=== PATIENT | female | born 1990 | race Hispanic/Latino ===

== ENCOUNTER 2016-05-07 00:01 | Emergency (ER) | payer OTHER ==
[~2016-05-07] VITALS: Ht 162.6 cm; Wt 68.0 kg
[2016-05-07 00:25] VITALS: BP 106/60
--- NOTE | 2016-05-07 00:29 | ED ANKLE/FOOT INJURY COMPLAINT ---
History of Present Illness General Chief Complaint: Foot or Ankle Injury Stated Complaint: HIT TOE ON RT FOOT PER PT "IT HURTS" Source: patient Exam Limitations: no limitations Vital Signs & Intake/Output Vital Signs & Intake/Output Vital Signs Date Time Temp Pulse Resp B/P Pulse O2 O2 Flow FiO2 Ox Delivery Rate 05/07 0031 94 Room Air 05/07 0025 97.5 79 18 106/60 94 Room Air Allergies Coded Allergies: celery (Severe, HIVES 05/07/16) peanut (Severe, ANAPHYLAXIS 05/07/16) Reconcile Medications Oxycodone HCl/Acetaminophen (Percocet 5-325 MG Tablet) 5 MG-325 MG TABLET 1-2 TAB PO Q6P PRN PAIN Triage Nurses Notes Reviewed? yes : No Patient currently breastfeeds: No HPI: This patient is a 26-year-old female who presented to the emergency department today for evaluation of right fourth toe pain. The patient reported that she was playing with her family and hit it. The patient reported that when she walks on her foot or touches the area of the pain is a 10 out of 10. When she is holding still she does not feel any pain. The pain is nonradiating and throbbing. The patient denied any ankle or knee pain. She is refusing any medication for pain here in the emergency department. (SABRINA SHARMA PA-C) Past History Travel History Traveled to [place] past 21 day No Medical History Any Pertinent Medical History? see below for history Neurological: NONE EENT: NONE Cardiovascular: NONE Respiratory: asthma Gastrointestinal: NONE Hepatic: NONE Renal: NONE Musculoskeletal: NONE Psychiatric: NONE Endocrine: NONE Blood Disorders: NONE Cancer(s): NONE HOME HOSPICE AIDE/Reproductive: NONE Surgical History Surgical History: non-contributory Psychosocial History What is your primary language Amharic Tobacco Use: Current Daily Use Daily Tobacco Use Amount/Type: => 5 Cigarettes daily Family History Hx Contributory? No (SABRINA SHARMA PA-C) Review of Systems Review of Systems Constitutional: Reports: no symptoms. EENTM: Reports: no symptoms. Respiratory: Reports: no symptoms. Cardiovascular: Reports: no symptoms. GI: Reports: no symptoms. Musculoskeletal: Reports: see HPI. Skin: Reports: no symptoms. Neurological/Psychological: Reports: no symptoms. All Other Systems: Reviewed and Negative (SABRINA SHARMA PA-C) Physical Exam Physical Exam Leg/Knee/Thigh Left: normal range of motion, normal inspection Comments: Well-developed well-nourished person in no acute distress HEENT: Head normocephalic, moist mucous membranes Neck: Supple Back: Antalgic gait Respiratory: No respiratory distress. Speaking in full sentences Right foot: No bony or muscular deformities noted. Mild ecchymosis noted to the dorsal aspect of the fourth digit. No overlying erythema or edema. Dorsalis pedis and posterior tibialis pulses 2+ and strong. Capillary refill is 2 seconds Neuro: Alert and oriented x3 Psych: Mood affect normal, normal memory normal judgment. Skin: Warm and dry, no rash on exposed skin (SABRINA SHARMA PA-C) Progress Differential Diagnosis: DVT, arterial insufficiency, cellulitis, gout, fracture, dislocation, sprain, contusion, compartmental syndrome Plan of Care: Current Medications Sig/Sheldon Start time Last Medication Dose Stop Time Status Admin Oxycodone/ 1 TAB ONCE ONE 05/07 129 UNVr Acetaminophen 05/07 130 (Percocet) XRAY (RUY EMANUEL MD) Hand-Off Endorsed To: RUY EMANUEL MD Endorsed Time: 50 Pending: Xray (SABRINA SHARMA PA-C) Diagnostic Imaging: Viewed by Me: Radiology Read. Discussed w/RAD: Radiology Read. Radiology Impression: PATIENT: TULIO VASQUEZ PRESENT AGE: 26 PATIENT ACCOUNT NO: [id number] : 92 LOCATION: [facility] ORDERING PHYSICIAN: RUY EMANUEL MD SERVICE DATE: 05/07/16 EXAM TYPE: RAD - XRY-TOES, RIGHT EXAMINATION: XR TOE, RIGHT CLINICAL INFORMATION: Pain post trauma COMPARISON: None. TECHNIQUE: 3 views of the right foot toes FINDINGS: There is no evidence of acute fracture or dislocation. Alignment is anatomic. Joint spaces are maintained. The soft tissues are unremarkable. IMPRESSION: No evidence of fracture or malalignment. DICTATED BY: REJI CHERRY MD DATE/TIME DICTATED:05/07/16111 SWINE EXTENSION FIELD SPECIALIST:ISH DATE/TIME TRANSCRIBED:05/07/16111 CONFIDENTIAL, DO NOT COPY WITHOUT APPROPRIATE AUTHORIZATION. <Electronically signed in Other Vendor System> SIGNED BY: REJI CHERRY MD 05/07/16116 (ADELFO NASCIMENTORUY Stinson) Departure Departure Disposition: HOME OR SELF CARE Condition: Stable Referrals: BLAZE NASCIMENTO,REMY GUPTA (PCP/Family) Additional Instructions: Take [id number] Tylenol or ibuprofen for pain. You may follow-up with the orthopedic physician whose information is provided to you in this packet. Return for any worsening symptoms or concerns. Departure Forms: Customer Survey General Discharge Information (EDITH BARKSDALE,SABRINA) Departure Clinical Impression Primary Impression: Toe contusion Prescriptions: Current Visit Scripts Oxycodone HCl/Acetaminophen (Percocet 5-325 MG Tablet) 1-2 TAB PO Q6P PRN PAIN #12 TAB PA/BOTTLE ASSEMBLER Co-Sign Statement Statement: ED Attending supervision documentation- [X] I saw and evaluated the patient. I have also reviewed all the pertinent lab results and diagnostic results. I agree with the findings and the plan of care as documented in the PA's/BOTTLE ASSEMBLER's documentation. [X] I have reviewed the ED Record and agree with the PA's/BOTTLE ASSEMBLER's documentation. [] Additions or exceptions (if any) to the PAs/BOTTLE ASSEMBLER's note and plan are summarized below: [] (ADELFO NASCIMENTO,RUY Stinson)
--- NOTE | 2016-05-07 01:17 | RADIOLOGY REPORT ---
EXAMINATION: XR TOE, RIGHT CLINICAL INFORMATION: Pain post trauma COMPARISON: None. TECHNIQUE: 3 views of the right foot toes FINDINGS: There is no evidence of acute fracture or dislocation. Alignment is anatomic. Joint spaces are maintained. The soft tissues are unremarkable. IMPRESSION: No evidence of fracture or malalignment.
[2016-05-07] MEDS ORDERED: PERCOCET 5-3251 EACH PO (01:24)
== END 2016-05-07 01:31 ==
LOC: ERH 00:01
DX: S90.121A Contusion of right lesser toe(s) without damage to nail, initial encounter (principal); X58.XXXA Exposure to other specified factors, initial encounter
CPT/HCPCS: 73660-RT